=== PATIENT | female | born 1945 | race Caucasian/White ===

== ENCOUNTER 2020-01-04 17:03 | Inpatient (IN) ==
[2020-01-04] MEDS ORDERED: SALINE 3% 15 ML NEB TX ONE (17:57)
[2020-01-04] MEDS ORDERED: SALINE 3% 15 ML NEB TX NEB ONE (18:04)
[2020-01-04 18:10] LABS: BASOPHILS % (AUTO) 0.3 % (0.2-1.0); EOSINOPHILS # (AUTO) 0.2 x10^3/uL (0.0-0.2); HEMATOCRIT 34.3 % (36.0-47.0); HEMOGLOBIN 11.7 g/dL (12.0-16.0); LYMPHOCYTES # (AUTO) 1.5 X10^3/uL (1.3-2.9); MEAN CORPUSCULAR HEMOGLOBIN 32.3 pg (27.0-34.0); MEAN CORPUSCULAR HGB CONC 34.1 g/dL (33.0-35.0); MEAN CORPUSCULAR VOLUME 94.8 fL (80.0-100.0); MEAN PLATELET VOLUME 8.4 fL (7.4-11.0); MONOCYTES # (AUTO) 1.1 x10^3/uL (0.3-0.8); MONOCYTES % (AUTO) 9.8 % (0.0-13.0); NEUTROPHILS # (AUTO) 8.1 x10^3/uL (2.2-4.8); NEUTROPHILS % (AUTO) 73.9 % (42.0-75.0); PLATELET COUNT 313 X10^3/uL (150.0-450.0); RED BLOOD COUNT 3.62 X10^6/uL (3.5-5.4); RED CELL DISTRIBUTION WIDTH 13.3 % (11.6-16.5); WHITE BLOOD COUNT 10.9 X10^3/uL (3.6-10.0)
[2020-01-04 18:25] LABS: ALANINE AMINOTRANSFERASE 37 Units/L (12-78); ALKALINE PHOSPHATASE 75 Units/L (46-116); ASPARTATE AMINO TRANSFERASE 37 Units/L (15-37); BLOOD UREA NITROGEN 10 mg/dL (7-18); CALCIUM 9.2 mg/dL (8.5-10.1); CARBON DIOXIDE 28.1 mmol/L (21-32); CHLORIDE 100 mmol/L (98-107); COR NA(FOR HYPERGLY) 137 mmol/L (136-145); CREATININE 0.98 mg/dL (0.55-1.02); SODIUM 137 mmol/L (136-145); TOTAL PROTEIN 8.7 g/dL (6.4-8.2); eGFR NON BLACK RACES 59 (>60)
[2020-01-04] MEDS ORDERED: CIPRO IV 400 MG PREMIX* 400 MG/200 ML IV.SOLN. IV ONE (18:45)
--- NOTE | 2020-01-04 18:46 | DR.URIAD ---
HPI Time Seen Time Seen by Provider: 01/04/20 18:44 PCP Primary Care Physician: RAFAT HPI Comment HPI Comment: PATIENT IS 74YR OLD WHITE FEMALE IN ER WITH COUGH, FEVER AND SOB FOR NINE DAYS. PATIENT WAS PLACED ON AMOXICILLIN AND TESSALON PERLES. NO IMPRO VEMENT. XRAY DONE INDICATING LLL PNEUMONIA AND PLEURAL EFFUSION. IN ER FOR FURTHER MANAGEMENT. PATIENT IS FAIL OUT PATIENT THERAPY. Complaint Chief Complaint Doctors Comments: COUGH, CONGESTION AND SOB. STATED 10DAYS AGO. Chief Complaint:: PT WENT TO [facility] ON 12/29/2019, DX SINUS, PT GIVEN AMOX, PT WENT TO [facility] TODAY PT C/O ( PNEUMONIA AND INFILTRATES )..BR Source History Provided: Patient and Family Member Mode of Arrival Mode of Arrival: Ambulatory Timing Onset of Chief Complaint: 12/26/19 Context Recent Treated Infections: None History of Respiratory: None Quality Quality of Cough: Productive and Yellow Rhinorrhea: Clear Shortness of Breath: Moderate Associated Signs and Symptoms Other Signs and Symptoms: Accessory Muscle Use, Cough, Decreased Oral Intake, Fever, Myalgias, Shortness of Breath and URI PMH PMH Past Medical History: No Past Surgical History: No Family History History of Family Medical Conditions: No Social History Does patient currently use any type of tobacco product: No Have you used tobacco products in the last 12 months: No Type of Tobacco Use: None Does any household member use tobacco: No Alcohol Use: None Do you use any recreational Drugs:: No Lives With: Family Lives Where: Home Travel Risk Coronavirus risk:travel/contact w/high risk person: No Has patient experienced Coronavirus symptoms: No Coronavirus symptoms experienced: Fever and Lower Respiratory illness Infectious screening In the last 2 months have you had wt loss of >10#?: NO Have you had fever, night sweats or hemotysis?: No Have you traveled outside the country in the last 6 months?: No Isolation: Standard ROS Review of Systems Constitutional: See HPI, Fever, Weakness and Fatigue Eyes: No Symptoms Reported and See HPI; negative Blurred Vision and Diplopia ENTM: No Symptoms Reported and See HPI; negative Ear Pain, Nose Discharge, Nose Congestion and Throat Pain Respiratoy: See HPI, Moist Cough and Short of Breath; negative Wheezing Cardiovascular: No Symptoms Reported and See HPI; negative Chest Pain, Edema and Palpitations Gastrointestinal/Abdominal: No Symptoms Reported and See HPI; negative Abdominal Pain, Constipation, Diarrhea and Vomiting Genitourinary: No Symptoms Reported and See HPI; negative Dysuria and Hematuria Neurological: See HPI and Weakness; negative Headache and Dizziness Musculoskeletal: No Symptoms Reported and See HPI; negative Back Pain and Muscle Pain Integumentary: No Symptoms Reported and See HPI; negative Change in Color, Rash and Juandice Hematologic/Lymphatic: No Symptoms Reported and See HPI; negative Easy Bruising and Swollen Glands Endocrine: No Symptoms Reported, See HPI, Increased Thirst and Increased Urine Psychiatric: No Symptoms Reported and See HPI All Other Systems: Reviewed and Negative PE Vital Signs Vitals: Temperature 99.5 F Pulse Rate 99 Respiratory Rate 20 Blood Pressure 198/89 O2 Sat by Pulse Oximetry 93 General Limitations: No Limitations General Appearance: Alert and In Distress Head Head Exam: Normal Inspection and Atraumatic Eyes Eye exam: Normal Appearance, PERRL and EOMI; negative Scleral Icterus and Conjunctival Injection ENT ENT Exam: Normal Exam, Normal Oropharynx, Normal External Ear Exam and TM's Normal Bilaterally External Ear Exam: Normal External Inspection; negative Mastoid Tenderness TM/Canal Exam: Bilateral: Normal Nose Exam: Normal Nose Exam; negative Sinus Tenderness, Nasal Deviation and Septal Hematoma Mouth Exam: Normal Inspection; negative Lip Swelling and Tongue Swelling Throat Exam: Tonsillar Erythema; negative Tonsillomegaly and Tonsillar Exudate Neck Neck Exam: Normal Inspection and Trachea Midline; negative Tenderness and Lymphadenopathy Chest Chest Inspection: Normal Inspection and Symmetric Chest Wall Rise; negative Tenderness Respiratory Respiratory Exam: Respiratory Distress and Other ( LLL RHONCHI.); negative Accessory Muscle Use and Chest Wall Tenderness Cardiovascular Cardiovascular Exam: Regular Rate, Normal Rhythm and Normal Heart Sounds; negative Systolic Murmur and Diastolic Murmur Abdominal Exam Abdominal Exam: Normal Inspection, Normal Bowel Sounds and Soft; negative Tenderness Extremeties Extremities Exam: Normal Inspection and Normal Capillary Refill; negative Tenderness, Edema and Calf Tenderness Back Back Exam: negative Tenderness, (R) CVA Tenderness, (L) CVA Tenderness, Paraspinal Tenderness and Vertebral Tenderness Neurologic Neurological Exam: Alert, Oriented X3 and CN II-XII Intact; negative Motor Sensory Deficit Psychiatric Psychiatric Exam: Normal Affect and Normal Mood Skin Skin Exam: Warm, Dry, Intact and Normal Color MDM Additional Information Additional Information Obtained From: Family Differential Diagnosis Differential Diagnosis: Pneumonia (PNEUMOTHORAX, CHF, PLEURAL EFFUSION.) and URI COURSE Treatment Treatment: SEE ORDERS. LEVAQUIN 750MG IVPB IN ER. Consultation Consultation Comments: DISCUSEEDE PATIENT WITH DR. HOPE. HE WILL ADMIT PATIENT. Education/Counseling Education/Counseling: Patient and Family Educated On: Diagnosis ROR Labs Reviewed Laboratory Results Reviewed?: Yes Result Diagrams: 01/04/20 17:55 01/04/20 17:55 Laboratory: WBC 10.9 X10^3/uL (3.6-10.0) H 01/04/20 17:55 RBC 3.62 X10^6/uL (3.5-5.4) 01/04/20 17:55 Hgb 11.7 g/dL (12.0-16.0) L 01/04/20 17:55 Hct 34.3 % (36.0-47.0) L 01/04/20 17:55 MCV 94.8 fL (80.0-100.0) 01/04/20 17:55 MCH 32.3 pg (27.0-34.0) 01/04/20 17:55 MCHC 34.1 g/dL (33.0-35.0) 01/04/20 17:55 RDW 13.3 % (11.6-16.5) 01/04/20 17:55 Plt Count 313 X10^3/uL (150.0-450.0) 01/04/20 17:55 MPV 8.4 fL (7.4-11.0) 01/04/20 17:55 Neut % (Auto) 73.9 % (42.0-75.0) 01/04/20 17:55 Lymph % (Auto) 14.0 % (21.0-51.0) L 01/04/20 17:55 [place] % (Auto) 9.8 % (0.0-13.0) 01/04/20 17:55 Eos % (Auto) 2.0 % (0.9-2.9) 01/04/20 17:55 Baso % (Auto) 0.3 % (0.2-1.0) 01/04/20 17:55 Neut # (Auto) 8.1 x10^3/uL (2.2-4.8) H 01/04/20 17:55 Lymph # (Auto) 1.5 X10^3/uL (1.3-2.9) 01/04/20 17:55 [place] # (Auto) 1.1 x10^3/uL (0.3-0.8) H 01/04/20 17:55 Eos # (Auto) 0.2 x10^3/uL (0.0-0.2) 01/04/20 17:55 Baso # (Auto) 0.0 X10^3/uL (0.0-0.1) 01/04/20 17:55 Absolute Nucleated RBC 0.0 /100WBC 01/04/20 17:55 Sample Site Lr 01/04/20 19:04 ABG pH 7.510 (7.35-7.45) H 01/04/20 19:04 ABG pCO2 33.0 mmHg (35.0-45.0) L 01/04/20 19:04 ABG pO2 69.0 mmHg (80.0-100.0) L 01/04/20 19:04 ABG HCO3 26.3 mmol/L (22-26) H 01/04/20 19:04 ABG O2 Saturation 95.0 % (90-100) 01/04/20 19:04 ABG Base Excess 3.6 mmol/L (-2.0-2.0) H 01/04/20 19:04 Delroy Test Pos 01/04/20 19:04 A-a Gradient 39.0 mmHg 01/04/20 19:04 FiO2 21.0 01/04/20 19:04 Blood Gas Comments Kimberly well ae 01/04/20 19:04 Sodium 137 mmol/L (136-145) 01/04/20 17:55 Corrected Sodium 137 mmol/L (136-145) 01/04/20 17:55 Potassium 3.9 mmol/L (3.5-5.1) 01/04/20 17:55 Chloride 100 mmol/L (98-107) 01/04/20 17:55 Carbon Dioxide 28.1 mmol/L (21-32) 01/04/20 17:55 BUN 10 mg/dL (7-18) 01/04/20 17:55 Creatinine 0.98 mg/dL (0.55-1.02) 01/04/20 17:55 Est GFR (MDRD) Af Amer > 60 (>60) 01/04/20 17:55 Est GFR (MDRD) Non-Af 59 (>60) 01/04/20 17:55 Glucose 116 mg/dL (65-99) H 01/04/20 17:55 Lactic Acid 0.8 mmol/L (0.4-2.0) 01/04/20 17:55 Calcium 9.2 mg/dL (8.5-10.1) 01/04/20 17:55 Corrected Calcium 10.0 mg/dL (8.5-10.1) 01/04/20 17:55 Total Bilirubin 0.60 mg/dL (0.2-1.0) 01/04/20 17:55 AST 37 Units/L (15-37) 01/04/20 17:55 ALT 37 Units/L (12-78) 01/04/20 17:55 Alkaline Phosphatase 75 Units/L (46-116) 01/04/20 17:55 Total Protein 8.7 g/dL (6.4-8.2) H 01/04/20 17:55 Albumin 3.0 g/dL (3.4-5.0) L 01/04/20 17:55 Globulin 5.7 g/dL (2.5-4.5) H 01/04/20 17:55 Albumin/Globulin Ratio 0.5 Ratio (1.1-2.1) L 01/04/20 17:55 XRAY XRAY Interpreted by: Radiologist (REPORT NOTED AND DISCUSSED WITH PATIENT.) and Self Opioid Opioid Risk Tool Age (Shiraz box if 16-45): No History of Preadolescent Sexual Abuse: No Total: 0 Total Score Risk Category: Low Risk Copyright: Eric STRICKLAND predicting aberrant behaviors Diagnosis Discharge Problem: Pleural effusion, left LLL pneumonia Qualifiers: Pneumonia type: due to unspecified organism Qualified Code(s): J18.9 - Pneumonia, unspecified organism
[2020-01-04 18:56] LABS: LACTIC ACID 0.8 mmol/L (0.4-2.0)
[2020-01-04 19:09] LABS: ABG BASE EXCESS 3.6 mmol/L (-2.0-2.0); ABG HCO3 26.3 mmol/L (22-26)
[2020-01-04 19:10] LABS: ABG ALLEN TEST POS
[2020-01-04] MEDS ORDERED: LEVAQUIN PREMIX IV 750 MG 750 MG/150 ML BAG IV ONE ×2 (19:19→19:41)
[2020-01-04] MEDS ORDERED: TUSSIONEX PENNKINETIC SUSP PO PRN (21:15)
[2020-01-04 22:04] VITALS: BMI 36.8
[2020-01-04] MEDS ORDERED: NS 1/2 1000 ML IV 1,000 ML IV ONE (22:26)
[2020-01-04] MEDS: FORTAZ or TAZICEF VIAL INJ 1 G in NS 100 ML IV + SPIKE MINIBAG* 100 ML IV SCH ×2 (22:27→22:41)
[2020-01-04] MEDS: ROBITUSSIN DM PO SCH (22:27)
[2020-01-04] MEDS: NS 1/2 1000 ML IV 1,000 ML IV SCH (22:27)
[2020-01-05] MEDS: DUONEB 0.5 MG/3 MG (3 mL) NEB SCH ×2 (00:05→05:06)
[2020-01-05] MEDS ORDERED: TYLENOL 325 MG TAB PO ONE (01:52)
[2020-01-05] MEDS: TYLENOL 325 MG TAB PO PRN ×2 (01:56→21:50)
[2020-01-05] MEDS: FORTAZ or TAZICEF VIAL INJ 1 G in NS 100 ML IV + SPIKE MINIBAG* 100 ML IV SCH ×3 (05:21→22:15)
--- NOTE | 2020-01-05 05:57 | RAD ---
HISTORYPneumoniaSTUDYChest PA and lateral viewsCOMPARISONNoneFINDINGSThere is marked cardiac enlargement. The right lung is clear. There is a retrocardiac opacity obscuring the diaphragm. The left upper lung is clear.IMPRESSIONMarked heart enlargement. Left basal opacity may represent airspace disease and/or pleural effusion. Follow-up with decubitus views may be helpful.Electronically signed by: LIONEL GOMEZ (Jan 05, 2020 05:56:33)
[2020-01-05 06:05] LABS: BASOPHILS % (AUTO) 0.3 % (0.2-1.0); EOSINOPHILS # (AUTO) 0.2 x10^3/uL (0.0-0.2); EOSINOPHILS % (AUTO) 2.3 % (0.9-2.9); HEMATOCRIT 34.1 % (36.0-47.0); HEMOGLOBIN 11.5 g/dL (12.0-16.0); LYMPHOCYTES # (AUTO) 1.7 X10^3/uL (1.3-2.9); LYMPHOCYTES % (AUTO) 16.5 % (21.0-51.0); MEAN CORPUSCULAR HEMOGLOBIN 32.3 pg (27.0-34.0); MEAN CORPUSCULAR HGB CONC 33.8 g/dL (33.0-35.0); MEAN CORPUSCULAR VOLUME 95.6 fL (80.0-100.0); MEAN PLATELET VOLUME 8.9 fL (7.4-11.0); MONOCYTES # (AUTO) 1.2 x10^3/uL (0.3-0.8); MONOCYTES % (AUTO) 11.6 % (0.0-13.0); NEUTROPHILS # (AUTO) 7.3 x10^3/uL (2.2-4.8); NEUTROPHILS % (AUTO) 69.3 % (42.0-75.0); PLATELET COUNT 291 X10^3/uL (150.0-450.0); RED BLOOD COUNT 3.57 X10^6/uL (3.5-5.4); RED CELL DISTRIBUTION WIDTH 13.3 % (11.6-16.5); WHITE BLOOD COUNT 10.6 X10^3/uL (3.6-10.0)
[2020-01-05 06:15] LABS: ALANINE AMINOTRANSFERASE 31 Units/L (12-78); ALBUMIN 2.7 g/dL (3.4-5.0); ALKALINE PHOSPHATASE 68 Units/L (46-116); ASPARTATE AMINO TRANSFERASE 33 Units/L (15-37); BLOOD UREA NITROGEN 8 mg/dL (7-18); CALCIUM 8.7 mg/dL (8.5-10.1); CARBON DIOXIDE 28.9 mmol/L (21-32); CHLORIDE 102 mmol/L (98-107); COR CA(FOR HYPOALB) 9.7 mg/dL (8.5-10.1); COR NA(FOR HYPERGLY) 139 mmol/L (136-145); CREATININE 1.06 mg/dL (0.55-1.02); SODIUM 139 mmol/L (136-145); TOTAL PROTEIN 8.3 g/dL (6.4-8.2); eGFR NON BLACK RACES 54 (>60)
[2020-01-05] MEDS ORDERED: MICRO K EXTEN CAP 10 MEQ PO PRN (06:38)
[2020-01-05] MEDS ORDERED: POTASSIUM CHLORIDE LIQ 20 MEQ UDC PO PRN (06:38)
[2020-01-05] MEDS ORDERED: K-RIDER 10 MEQ/NS 100 ML 10 MEQ/100 ML BAG IV PRN (06:38)
[2020-01-05] MEDS ORDERED: POTASSIUM CHL 40 MEQ/NS 0.45% 500 ML IV PRN (06:38)
[2020-01-05] MEDS ORDERED: KLOR-CON PO PRN (06:38)
[2020-01-05] MEDS ORDERED: POTASSIUM CHL 60 MEQ/NS 0.45% 500 ML IV PRN (06:38)
[2020-01-05] MEDS: K-DUR TAB 20 MEQ PO PRN (07:30)
[2020-01-05] MEDS: ROBITUSSIN DM PO SCH ×4 (09:15→20:40)
[2020-01-05] MEDS: VSL#3 PO SCH (09:15)
[2020-01-05] MEDS: LOVENOX INJ 40 MG SYR SC SCH (09:15)
[2020-01-05] MEDS: MAGNESIUM SULFATE 1 GRAM/100 mL PREMIX 1 GM/100 ML BAG IV PRN ×2 (09:16→10:50)
[2020-01-05 09:54] LABS: ABG BASE EXCESS 4.7 mmol/L (-2.0-2.0); ABG HCO3 28.2 mmol/L (22-26)
[2020-01-05 09:55] LABS: ABG ALLEN TEST POS
[2020-01-05 09:56] LABS: RSV AG DETECTION NEGATIVE (NEGATIVE)
[2020-01-05] MEDS ORDERED: DUONEB 0.5 MG/3 MG (3 mL) NEB PRN (11:29)
--- NOTE | 2020-01-05 12:26 | CT ---
HISTORYShortness of breath. Coughing for 9 days.STUDYCHEST WITH CONCOMPARISONChest radiograph from january 05, 2020.TECHNIQUEMultiple axial images of the chest were obtained from the thoracic inlet to the upper abdomen without the administration of IV contrast. Dose reduction techniques including Automated Exposure Control (AEC) and adjustment of mA and kV were utilized.FINDINGSThere are multiple lymph nodes in the mediastinum. There is a least one 1.5 cm lymph nodes in the left AP window. The aorta is normal appearance, without evidence of aneurysm or dissection. The main pulmonary arteries have a normal nonenhanced appearance. There is a large pericardial effusion.There is a large left-sided pleural effusion. There is a small right-sided pleural effusion. Patchy airspace and interstitial opacities along the periphery of the right lower lobe. There is some compressive atelectasis versus small focal consolidation in the left lung base. There is no evidence of pneumothorax.There is no acute osseous injury.The visualized solid visceral organs in the upper abdomen are unremarkable.IMPRESSION1. Large pericardial effusion.2. Large left-sided pleural effusion. Small right-sided pleural effusion.3. Compressive atelectasis versus consolidation in the left lower lobe.4. Patchy infiltrate along the periphery of the right lower lobe.5. Mediastinal lymphadenopathy. Although there is a post 1.5 cm lymph node in the AP window. Most of the lymph nodes in the mediastinum appear reactive in nature. Clinical correlation for infectious or inflammatory process is recommended.Electronically signed by: CHANTAL NATH (Jan 05, 2020 12:24:11)
[2020-01-05 13:06] LABS: BILIRUBIN,URINE NEGATIVE (NEGATIVE); BLOOD/HEMOGLOBIN,URINE 2+ (NEGATIVE); GLUCOSE, URINE NEGATIVE (NEGATIVE); KETONES,URINE NEGATIVE (NEGATIVE); LEUKOCYTE ESTERASE ,URINE NEGATIVE (NEGATIVE); NITRITES,URINE NEGATIVE (NEGATIVE); PH,URINE 6.5 (5.0 - 8.0); PROTEIN,URINE 1+ (NEGATIVE); UROBILINOGEN,URINE NORMAL (NORMAL)
[2020-01-05 13:37] LABS: APPEARANCE,URINE CLEAR (CLEAR); COLOR,URINE YELLOW (YELLOW)
[2020-01-05 13:38] LABS: AMORPHOUS SEDIMENT,UR 1+ /HPF (NEGATIVE); BACTERIA,URINE NEGATIVE /HPF (NEGATIVE); RBC,URINE 0-2 /HPF (0-3); SQUAMOUS EPITHELIAL CELL,UR FEW /HPF (NEGATIVE)
[2020-01-05] MEDS ORDERED: NS 1/2 1000 ML IV 1,000 ML IV ONE (13:53)
[2020-01-05] MEDS: NS 1/2 1000 ML IV 1,000 ML IV SCH (13:57)
[2020-01-05] MEDS: ALBUMIN HUMAN 25%- 100 ML 100 ML IV SCH (14:13)
[2020-01-05 15:32] LABS: RHEUMATOID FACTOR POSITIVE (NEGATIVE)
[2020-01-05 16:19] LABS: CREATINE KINASE 102 Units/L (26-192); CREATINE KINASE MB < 1.0 ng/mL (0-4.0); TROPONIN I < 0.02 ng/mL (0-1.5)
[2020-01-05] MEDS: LASIX IVP SCH (17:10)
[2020-01-05 19:06] LABS: ABG ALLEN TEST POS; ABG BASE EXCESS 3.6 mmol/L (-2.0-2.0); ABG HCO3 26.3 mmol/L (22-26)
[2020-01-05 19:54] LABS: CREATINE KINASE 126 Units/L (26-192); CREATINE KINASE MB 1.3 ng/mL (0-4.0); TROPONIN I < 0.02 ng/mL (0-1.5)
[2020-01-05] MEDS ORDERED: LEVAQUIN PREMIX IV 750 MG 750 MG/150 ML BAG IV SCH (20:21)
[2020-01-05] MEDS ORDERED: RESTORIL CAP 15 MG PO PRN (21:10)
[2020-01-06] MEDS: NS 1/2 1000 ML IV 1,000 ML IV SCH ×3 (00:58→16:12)
[2020-01-06 02:31] LABS: CKMB % 0.8 % (<4); CREATINE KINASE 131 Units/L (26-192); TROPONIN I < 0.02 ng/mL (0-1.5)
[2020-01-06] MEDS: LASIX IVP SCH (05:30)
[2020-01-06] MEDS: FORTAZ or TAZICEF VIAL INJ 1 G in NS 100 ML IV + SPIKE MINIBAG* 100 ML IV SCH ×3 (05:35→21:35)
[2020-01-06 05:44] LABS: ABG ALLEN TEST POS; ABG BASE EXCESS 5.5 mmol/L (-2.0-2.0); ABG HCO3 28.9 mmol/L (22-26)
[2020-01-06] MEDS ORDERED: NS 1/2 1000 ML IV 1,000 ML IV ONE (05:58)
[2020-01-06 05:59] LABS: BASOPHILS % (AUTO) 0.3 % (0.2-1.0); EOSINOPHILS # (AUTO) 0.2 x10^3/uL (0.0-0.2); EOSINOPHILS % (AUTO) 1.6 % (0.9-2.9); HEMATOCRIT 30.8 % (36.0-47.0); HEMOGLOBIN 10.3 g/dL (12.0-16.0); LYMPHOCYTES # (AUTO) 1.2 X10^3/uL (1.3-2.9); LYMPHOCYTES % (AUTO) 10.9 % (21.0-51.0); MEAN CORPUSCULAR HEMOGLOBIN 31.6 pg (27.0-34.0); MEAN CORPUSCULAR HGB CONC 33.3 g/dL (33.0-35.0); MEAN CORPUSCULAR VOLUME 94.8 fL (80.0-100.0); MEAN PLATELET VOLUME 8.9 fL (7.4-11.0); MONOCYTES # (AUTO) 1.3 x10^3/uL (0.3-0.8); MONOCYTES % (AUTO) 11.7 % (0.0-13.0); NEUTROPHILS # (AUTO) 8.6 x10^3/uL (2.2-4.8); NEUTROPHILS % (AUTO) 75.5 % (42.0-75.0); PLATELET COUNT 258 X10^3/uL (150.0-450.0); RED BLOOD COUNT 3.25 X10^6/uL (3.5-5.4); WHITE BLOOD COUNT 11.4 X10^3/uL (3.6-10.0)
[2020-01-06 06:14] LABS: ALANINE AMINOTRANSFERASE 25 Units/L (12-78); ALBUMIN 2.7 g/dL (3.4-5.0); ALKALINE PHOSPHATASE 61 Units/L (46-116); ASPARTATE AMINO TRANSFERASE 33 Units/L (15-37); BLOOD UREA NITROGEN 9 mg/dL (7-18); CALCIUM 8.5 mg/dL (8.5-10.1); CARBON DIOXIDE 28.1 mmol/L (21-32); CHLORIDE 100 mmol/L (98-107); COR CA(FOR HYPOALB) 9.5 mg/dL (8.5-10.1); COR NA(FOR HYPERGLY) 134 mmol/L (136-145); CREATININE 0.86 mg/dL (0.55-1.02); SODIUM 134 mmol/L (136-145); TOTAL PROTEIN 7.8 g/dL (6.4-8.2); eGFR NON BLACK RACES > 60 (>60)
[2020-01-06 06:41] LABS: ERYTHROCYTE SEDIMENTATION RATE 102 MM/HOUR (0-20)
--- NOTE | 2020-01-06 07:10 | RAD ---
HISTORYDyspnea and chest pain.STUDYSingle portable view of the chest.COMPARISONChest radiograph dated January 05, 2020.FINDINGSThe trachea is midline. The cardiac silhouette is enlarged but stable. There is a moderate-sized left basilar pleural effusion with associated left lower lobe consolidation/compressive atelectasis also seen. Ground-glass disease in the right lung base is stable as well. No other cardiopulmonary changes from prior identified on this examination. The bony thorax is unremarkable.IMPRESSIONThe trachea is midline. The cardiac silhouette is enlarged but stable. There is a moderate-sized left basilar pleural effusion with associated left lower lobe consolidation/compressive atelectasis also seen. Ground-glass disease in the right lung base is stable as well. No other cardiopulmonary changes from prior identified on this examination. The bony thorax is unremarkable.Electronically signed by: SALVADOR PICHARDO III (Jan 06, 2020 07:09:01)
--- NOTE | 2020-01-06 07:12 | RAD ---
HISTORYFALL PT FELL YESTERDAY AND C/O PAIN IN HER LOWER BACKSTUDYLUMBAR SPINE, AP/LATCOMPARISONNone available.FINDINGSNormal alignment of the lumbar spine is maintained. No evidence for acute fracture can be identified. There is mild lumbar spondylosis and moderate lower lumbar facet joint DJD with foraminal and spinal canal narrowing seen from L3 through S1 which appears chronic in nature. No acute bony injury is otherwise seen. No L-spine subluxation is identified, either.IMPRESSIONDegenerative changes of the spine without acute fracture or subluxation seen.Electronically signed by: SALVADOR PICHARDO III (Jan 06, 2020 07:11:05)
--- NOTE | 2020-01-06 07:14 | RAD ---
HISTORYBack pain and fall. Concern for sacral fracture.STUDYThree-view radiographic series of the sacrum.COMPARISONNone available.FINDINGSThere is no convincing evidence for acute sacral fracture. No SI joint diastasis is seen, either. The pelvic ring is grossly intact on this examination. There is mild bilateral hip joint osteoarthritis. No other bony injury or other acute fracture is appreciated.IMPRESSIONNo convincing evidence for a traumatic sacral fracture, as above.Electronically signed by: SALVADOR PICHARDO III (Jan 06, 2020 07:12:46)
[2020-01-06] MEDS: LOVENOX INJ 40 MG SYR SC SCH (09:01)
[2020-01-06] MEDS: VSL#3 PO SCH (09:03)
[2020-01-06] MEDS: ROBITUSSIN DM PO SCH ×4 (09:03→21:35)
[2020-01-06 09:58] LABS: LACTATE DEHYDROGENASE 361 Units/L (81-234)
[2020-01-06] MEDS ORDERED: CARDIZEM INJ 125 MG VIAL 125 MG in NS 100 ML IV 100 ML IV PRN (12:04)
[2020-01-06] MEDS ORDERED: NS 500 ML IV 500 ML IV PRN (13:17)
[2020-01-06] MEDS ORDERED: NS 500 ML IV 500 ML IV ONE (13:21)
[2020-01-06] MEDS: ALBUMIN HUMAN 25%- 100 ML 100 ML IV SCH (13:24)
[2020-01-06] MEDS ORDERED: PLAQUENIL PO ONE (13:40)
[2020-01-06] MEDS: ZITHROMAX INJ 500 MG VIAL 500 MG in NS 250 ML IV 250 ML IV SCH (13:50)
[2020-01-06] MEDS: PLAQUENIL PO SCH ×2 (14:57→21:36)
[2020-01-07 03:08] LABS: BILIRUBIN,URINE NEGATIVE (NEGATIVE); BLOOD/HEMOGLOBIN,URINE 2+ (NEGATIVE); GLUCOSE, URINE NEGATIVE (NEGATIVE); KETONES,URINE 1+ (NEGATIVE); LEUKOCYTE ESTERASE ,URINE NEGATIVE (NEGATIVE); NITRITES,URINE NEGATIVE (NEGATIVE); PH,URINE 6.5 (5.0 - 8.0); PROTEIN,URINE 1+ (NEGATIVE); UROBILINOGEN,URINE NORMAL (NORMAL)
[2020-01-07 03:09] LABS: APPEARANCE,URINE CLEAR (CLEAR); COLOR,URINE YELLOW (YELLOW)
[2020-01-07 03:14] LABS: BACTERIA,URINE NEGATIVE /HPF (NEGATIVE); RBC,URINE 0-2 /HPF (0-3); SQUAMOUS EPITHELIAL CELL,UR NEGATIVE /HPF (NEGATIVE)
[2020-01-07] MEDS ORDERED: NS 1/2 1000 ML IV 1,000 ML IV ONE ×2 (04:06→21:04)
[2020-01-07] MEDS: NS 1/2 1000 ML IV 1,000 ML IV SCH ×3 (04:26→21:18)
[2020-01-07 05:35] LABS: BASOPHILS % (AUTO) 0.1 % (0.2-1.0); EOSINOPHILS # (AUTO) 0.2 x10^3/uL (0.0-0.2); EOSINOPHILS % (AUTO) 1.4 % (0.9-2.9); HEMATOCRIT 30.3 % (36.0-47.0); HEMOGLOBIN 10.3 g/dL (12.0-16.0); LYMPHOCYTES # (AUTO) 1.3 X10^3/uL (1.3-2.9); LYMPHOCYTES % (AUTO) 11.8 % (21.0-51.0); MEAN CORPUSCULAR HEMOGLOBIN 32.2 pg (27.0-34.0); MEAN CORPUSCULAR HGB CONC 33.8 g/dL (33.0-35.0); MEAN CORPUSCULAR VOLUME 95.1 fL (80.0-100.0); MEAN PLATELET VOLUME 9.1 fL (7.4-11.0); MONOCYTES # (AUTO) 1.1 x10^3/uL (0.3-0.8); MONOCYTES % (AUTO) 10.7 % (0.0-13.0); NEUTROPHILS # (AUTO) 8.1 x10^3/uL (2.2-4.8); PLATELET COUNT 269 X10^3/uL (150.0-450.0); RED BLOOD COUNT 3.19 X10^6/uL (3.5-5.4); RED CELL DISTRIBUTION WIDTH 13.2 % (11.6-16.5); WHITE BLOOD COUNT 10.7 X10^3/uL (3.6-10.0)
[2020-01-07] MEDS: FORTAZ or TAZICEF VIAL INJ 1 G in NS 100 ML IV + SPIKE MINIBAG* 100 ML IV SCH ×3 (05:39→21:18)
[2020-01-07] MEDS: PLAQUENIL PO SCH ×3 (05:40→21:18)
[2020-01-07 05:43] LABS: ALANINE AMINOTRANSFERASE 28 Units/L (12-78); ALBUMIN 2.6 g/dL (3.4-5.0); ALKALINE PHOSPHATASE 55 Units/L (46-116); ASPARTATE AMINO TRANSFERASE 30 Units/L (15-37); BLOOD UREA NITROGEN 8 mg/dL (7-18); CALCIUM 8.4 mg/dL (8.5-10.1); CHLORIDE 101 mmol/L (98-107); COR CA(FOR HYPOALB) 9.5 mg/dL (8.5-10.1); COR NA(FOR HYPERGLY) 136 mmol/L (136-145); CREATININE 0.78 mg/dL (0.55-1.02); SODIUM 136 mmol/L (136-145); TOTAL PROTEIN 7.4 g/dL (6.4-8.2); eGFR NON BLACK RACES > 60 (>60)
[2020-01-07 07:40] LABS: ERYTHROCYTE SEDIMENTATION RATE 111 MM/HOUR (0-20)
--- NOTE | 2020-01-07 07:57 | RAD ---
HISTORYShortness of breath.STUDYCHEST, 1 VIEWCOMPARISONChest radiograph dated 01/06/2020. Chest CT dated 01/05/2020.FINDINGSThe trachea is midline. The cardiac silhouette is enlarged with large pericardial effusion noted on the recent comparison chest CT. There is persistent retrocardiac opacity in the left lung base which corresponds to a pleural effusion and associated compressive atelectasis on the comparison chest CT. Left upper lung zone and right lung are clear.IMPRESSIONEnlarged cardiac silhouette and retrocardiac opacity on the left are unchanged and likely correspond to a large pericardial effusion and left basilar pleural effusion with associated compressive atelectasis noted on the comparison chest CT performed 2 days earlier.Electronically signed by: ISMAEL MORRISON (Jan 07, 2020 07:56:46)
[2020-01-07] MEDS: ROBITUSSIN DM PO SCH ×4 (10:00→21:18)
[2020-01-07] MEDS: ZITHROMAX INJ 500 MG VIAL 500 MG in NS 250 ML IV 250 ML IV SCH (10:00)
[2020-01-07] MEDS: ALBUMIN HUMAN 25%- 100 ML 100 ML IV SCH (10:00)
[2020-01-07] MEDS: VSL#3 PO SCH (10:00)
[2020-01-07] MEDS: LOVENOX INJ 40 MG SYR SC SCH (10:00)
--- NOTE | 2020-01-07 10:04 | DR.H&P ---
H&P - History & Physical for Day of: H&P Date: 01/04/20 - Chief Complaint Chief Complaint: COUGH, FEVER, SOB - History of Present Illness History of Present Illness: IS A 74 YEAR OLD WHITE FEMALE WHO PRESENTED TO THE ER WITH COMPLAINTS OF COUGH, FEVER, AND SHORTNESS OF BREATH X 9 DAYS. SHE WAS RECENTELY TREATED AT [facility] ON 12/29/19 IN [place], [place] FOR PNEUMONIA AND PLEURAL EFFUSION, WHICH WAS CONFIRMED BY XRAY. SHE WAS PLACED ON AMOXICILLIN AND TESSALON PERLES. SHE DENIES IMPROVEMENT IN SYMPTOMS SINCE. SHE REPORTS A PRODUCTIVE COUGH WITH THICK YELLOW SPUTUM. SHE WAS ALSO SWABBED FOR INFLUENZA AT [facility]. IT WAS NEGATIVE. ON ARRIVAL TO THE HOSPITAL, VITALS WERE 99.5-99-20-93%-198/89. LABS WERE OBTAINED. ABNORMAL LAB VALUES INCLUDED THE FOLLOWING: WBC 10.9, HGB 11.7, HCT 34.3, GLUCOSE 116, TOTAL PROTEIN 8.7, ALBUMIN 3.0, GLOBULIN 5.7. AN ABG REVEALED: PH 7.510, PC02 33.0, P02 69.0, HC03 26.3, BASE EXCESS 3.6. BLOOD CULTURES WERE SET UP. A CHEST XRAY WAS OBTAINED AND REVEALED: Marked heart enlargement. Left basal opacity may represent airspace disease and/or pleural effusion. Follow-up with decubitus views may be helpful. SHE WAS GIVEN LEVAQUIN 750MG PO X 1 DOSE AND A RESPIRATORY TX. SHE WAS ADMITTED FOR LLL PNEUMONIA, LEFT PLEURAL EFFUSION, AND RESPIRATORY DISTRESS. SHE WAS STARTED ON NS @ 75 ML/HR, FORTAZ 1G IV Q8H, LEVAQUIN IV DAILY, RESPIRATORY TX, TUSSIONEX, AND SUPPLEMENTAL OXYGEN. OTHERWISE, WE PLAN TO FOLLOW UP WITH AM LABS AND CHEST XRAY AND CONTINUE TO MONITOR. 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 - Family History Family Medical History: Diabetes Mellitus, [place], Coronary Artery Disease, Hypertension - Social History Does patient currently use any type of tobacco product: No Have you used tobacco products in the last 12 months: No Type of Tobacco Use: None Does any household member use tobacco: No Alcohol Use: None Drug Use: None - Medications Home Medications: No Known Drug Allergies Allergy (Verified 01/04/20 17:19) CONTINUE taking the following medications amoxicillin-pot clavulanate 1 tab PO BID 01/04/20 [History] benzonatate 200 mg PO DAILY 01/04/20 [History] - Review of Systems Constitutional: Fever, Chills Eyes: No Symptoms Reported ENT: No Symptoms Reported Respiratory: See HPI, Cough, Shortness of Breath Cardiovascular: No Symptoms Reported Gastrointestinal: No Symptoms Reported Genitourinary: No Symptoms Reported Musculoskeletal: No Symptoms Reported Skin: No Symptoms Reported Neurological: Weakness - Physical Exam Vital Signs: Temperature 98.1 F Pulse Rate [Apical] 81 Pulse Rate 85 Respiratory Rate 51 Blood Pressure [Right Arm] 159/72 Blood Pressure 161/71 O2 Sat by Pulse Oximetry 95 Oriented: Normal Eyes: Normal Ear: Normal Nose: Normal Throat: Normal Respiratory: Diminished Throughout Cardiovascular: Normal. negative: S3, S4, Murmur : Normal Auscultation: Bowel Sounds: Normal Palpation: Normal Tenderness: Normal Skin: Normal Musculoskeletal: Normal Psychiatric: Normal Mood Description: Calm Affect: Normal Speech Pattern: Clear - Assessment/Plan (1) LLL pneumonia Qualifiers: Pneumonia type: due to unspecified organism Qualified Code(s): J18.9 - Pneumonia, unspecified organism Status: Acute Plan: NS @ 75 ML/HR, FORTAZ 1G IV Q8H, LEVAQUIN IV DAILY, RESPIRATORY TX, TUSSIONEX, AND SUPPLEMENTAL OXYGEN. (2) Pleural effusion, left Status: Acute - Allergies Allergies/Adverse Reactions: Allergies Allergy/AdvReac Type Severity Reaction Status Date / Time No Known Drug Allergies Allergy Verified 01/04/20 17:19
[2020-01-07] MEDS ORDERED: LANOXIN INJ IVP ONE (15:41)
[2020-01-07] MEDS ORDERED: TOPROL XL PO ONE (15:43)
[2020-01-07] MEDS ORDERED: LANOXIN INJ ONE (15:43)
[2020-01-07] MEDS: TOPROL XL PO SCH (16:12)
[2020-01-07] MEDS: K-DUR TAB 20 MEQ PO PRN (21:20)
--- NOTE | 2020-01-07 23:06 | PCM.PROG ---
Progress Note - Progress Note for Day of Date of Exam: 01/06/20 - Subjective Subjective: IS BEING TREATED FOR LLL PNEUMONIA AND A LEFT SIDED PLEURAL EFFUSION. TODAY, SHE IS ALERT AND ORIENTED, SITTING UP IN BED ON MORNING ROUNDS. SHE IS NOTED WITH SHORTNESS OF BREATH AND COUGH TODAY. SHE REPORTS THAT SHORTNESS OF BREATH HAS INCREASED SINCE YESTERDAY. STAFF REPORTS THAT SHE HAS BEEN TACHYCARDIC THROUGHOUT THE MORNING. ON EXAMINATION, HEART IS REGULAR IN RATE AND RHYTHM. BILATERAL LUNGS ARE NOTED WITH SCATTERED WHEEZING THROUGHOUT. ABDOMEN IS ROUND, SOFT, AND NON-TENDER WITH NORMAL BOWEL SOUNDS NOTED IN ALL QUADRANTS. HER VITALS THIS MORNING ARE: 98.4-90-20-96%-144/69. LABS WERE OBTAINED. ABNORMAL LAB VALUES INCLUDE THE FOLLOWING: WBC 11.4, RBC 3.25, HGB 10.3, HCT 30.8, SODIUM 134, GLUCOSE 116, CRP 131.60, ALBUMIN 2.7, FERRITIN 782, LDH 361. RSV NEGATIVE. BLOOD CULTURES ARE PENDING. A CHEST XRAY WAS OBTAINED TODAY AND REVEALED: The trachea is midline. The cardiac silhouette is enlarged but stable. There is a moderate-sized left basilar pleural effusion with associated left lower lobe consolidation/compressive atelectasis also seen. Ground-glass disease in the right lung base is stable as well. No other cardiopulmonary changes from prior identified on this examination. The bony thorax is unremarkable. TODAY, WE WILL SWAB FOR COVID-19 AND OBTAIN A CHEST CT WITH CONTRAST. OTHERWISE, WE WILL CONTINUE WITH IV ANTIBIOTICS, RESPIRATORY TX, THE POTASSIUM AND MAGNESIUM PROTOCOLS, IV FLUIDS, AND CURRENT PLAN OF CARE. OTHERWISE, WE WILL FOLLOW UP WITH AM LABS AND CHEST XRAY AND CONTINUE TO MONITOR. - Past Medical Family Social History Past Med/Fam/Surg Hx: No changes since H&P Allergies: Allergies No Known Drug Allergies Allergy (Verified 01/04/20 17:19) - Review of Systems ROS: No change since H&P - Vital Signs and I&O's Vital Signs: Temperature 99.1 F Pulse Rate [Apical] 81 Pulse Rate 72 Respiratory Rate 32 Blood Pressure [Right Arm] 159/72 Blood Pressure 178/77 O2 Sat by Pulse Oximetry 97 Intake and Output: Intake & Output 01/05/20 01/06/20 01/07/20 01/08/20 11:59 11:59 11:59 11:59 Intake Total 1265 / 1265 2630 / 2630 2605 / 2605 1540 / 1540 Output Total 2650 / 2650 1150 / 1150 1350 / 1350 Balance 1265 / 1265 -20 / -20 1455 / 1455 190 / 190 - Physical Exam Oriented: Normal Eyes: Normal Ear: Normal Nose: Normal Throat: Normal Respiratory: Generalized, Wheezes Cardiovascular: Normal. negative: S3, S4, Murmur : Normal Auscultation: Bowel Sounds: Normal Palpation: Normal Tenderness: Normal Skin: Normal Musculoskeletal: Normal Psychiatric: Normal Mood Description: Calm Affect: Normal Speech Pattern: Clear - Laboratory and Diagnostics Result Diagrams: 01/07/20 05:06 01/07/20 05:06 Labs: 01/04/20 18:01 Blood Blood Culture - Preliminary 01/04/20 17:55 Blood Blood Culture - Preliminary Laboratory WBC 10.7 X10^3/uL (3.6-10.0) H 01/07/20 05:06 RBC 3.19 X10^6/uL (3.5-5.4) L 01/07/20 05:06 Hgb 10.3 g/dL (12.0-16.0) L 01/07/20 05:06 Hct 30.3 % (36.0-47.0) L 01/07/20 05:06 MCV 95.1 fL (80.0-100.0) 01/07/20 05:06 MCH 32.2 pg (27.0-34.0) 01/07/20 05:06 MCHC 33.8 g/dL (33.0-35.0) 01/07/20 05:06 RDW 13.2 % (11.6-16.5) 01/07/20 05:06 Plt Count 269 X10^3/uL (150.0-450.0) 01/07/20 05:06 MPV 9.1 fL (7.4-11.0) 01/07/20 05:06 Neut % (Auto) 76.0 % (42.0-75.0) H 01/07/20 05:06 Lymph % (Auto) 11.8 % (21.0-51.0) L 01/07/20 05:06 [place] % (Auto) 10.7 % (0.0-13.0) 01/07/20 05:06 Eos % (Auto) 1.4 % (0.9-2.9) 01/07/20 05:06 Baso % (Auto) 0.1 % (0.2-1.0) L 01/07/20 05:06 Neut # (Auto) 8.1 x10^3/uL (2.2-4.8) H 01/07/20 05:06 Lymph # (Auto) 1.3 X10^3/uL (1.3-2.9) 01/07/20 05:06 [place] # (Auto) 1.1 x10^3/uL (0.3-0.8) H 01/07/20 05:06 Eos # (Auto) 0.2 x10^3/uL (0.0-0.2) 01/07/20 05:06 Baso # (Auto) 0.0 X10^3/uL (0.0-0.1) 01/07/20 05:06 Absolute Nucleated RBC 0.0 /100WBC 01/07/20 05:06 ESR 111 MM/HOUR (0-20) H 01/07/20 05:06 Sample Site Rr 01/06/20 05:39 ABG pH 7.500 (7.35-7.45) H 01/06/20 05:39 ABG pCO2 37.0 mmHg (35.0-45.0) 01/06/20 05:39 ABG pO2 82.0 mmHg (80.0-100.0) 01/06/20 05:39 ABG HCO3 28.9 mmol/L (22-26) H 01/06/20 05:39 ABG O2 Saturation 97.0 % (90-100) 01/06/20 05:39 ABG Base Excess 5.5 mmol/L (-2.0-2.0) H 01/06/20 05:39 Delroy Test Pos 01/06/20 05:39 A-a Gradient 71.0 mmHg 01/06/20 05:39 FiO2 28.0 01/06/20 05:39 Blood Gas Comments Kimberly well ae 01/06/20 05:39 Sodium 136 mmol/L (136-145) 01/07/20 05:06 Corrected Sodium 136 mmol/L (136-145) 01/07/20 05:06 Potassium 3.6 mmol/L (3.5-5.1) 01/07/20 05:06 Chloride 101 mmol/L (98-107) 01/07/20 05:06 Carbon Dioxide 29.0 mmol/L (21-32) 01/07/20 05:06 BUN 8 mg/dL (7-18) 01/07/20 05:06 Creatinine 0.78 mg/dL (0.55-1.02) 01/07/20 05:06 Est GFR (MDRD) Af Amer > 60 (>60) 01/07/20 05:06 Est GFR (MDRD) Non-Af > 60 (>60) 01/07/20 05:06 Glucose 115 mg/dL (65-99) H 01/07/20 05:06 Lactic Acid 0.8 mmol/L (0.4-2.0) 01/04/20 17:55 Calcium 8.4 mg/dL (8.5-10.1) L 01/07/20 05:06 Corrected Calcium 9.5 mg/dL (8.5-10.1) 01/07/20 05:06 Magnesium 1.9 mg/dL (1.7-2.9) 01/05/20 04:50 Ferritin 782 ng/mL (8-252) H 01/06/20 05:20 Total Bilirubin 0.60 mg/dL (0.2-1.0) 01/07/20 05:06 AST 30 Units/L (15-37) 01/07/20 05:06 ALT 28 Units/L (12-78) 01/07/20 05:06 Alkaline Phosphatase 55 Units/L (46-116) 01/07/20 05:06 Lactate Dehydrogenase 361 Units/L (81-234) H 01/06/20 05:20 Creatine Kinase 131 Units/L (26-192) 01/06/20 01:54 CK-MB (CK-2) 1.0 ng/mL (0-4.0) 01/06/20 01:54 CK/CKMB % Calc 0.8 % (<4) 01/06/20 01:54 Troponin I < 0.02 ng/mL (0-1.5) 01/06/20 01:54 C-Reactive Protein 147.10 mg/L (0-3.0) H 01/07/20 05:06 Total Protein 7.4 g/dL (6.4-8.2) 01/07/20 05:06 Albumin 2.6 g/dL (3.4-5.0) L 01/07/20 05:06 Globulin 4.8 g/dL (2.5-4.5) H 01/07/20 05:06 Albumin/Globulin Ratio 0.5 Ratio (1.1-2.1) L 01/07/20 05:06 Specimen Type Catherized urine 01/07/20 02:15 Urine Color Yellow (YELLOW) 01/07/20 02:15 Urine Appearance Clear (CLEAR) 01/07/20 02:15 Urine pH 6.5 (5.0 - 8.0) 01/07/20 02:15 Ur Specific [place] 1.005 (1.000-1.030) 01/07/20 02:15 Urine Protein 1+ (NEGATIVE) 01/07/20 02:15 Urine Glucose (UA) Negative (NEGATIVE) 01/07/20 02:15 Urine Ketones 1+ (NEGATIVE) 01/07/20 02:15 Urine Occult Blood 2+ (NEGATIVE) 01/07/20 02:15 Urine Nitrite Negative (NEGATIVE) 01/07/20 02:15 Urine Bilirubin Negative (NEGATIVE) 01/07/20 02:15 Urine Urobilinogen Normal (NORMAL) 01/07/20 02:15 Ur Leukocyte Esterase Negative (NEGATIVE) 01/07/20 02:15 Urine RBC 0-2 /HPF (0-3) 01/07/20 02:15 Urine WBC None seen /HPF (0-5) 01/07/20 02:15 Ur Squamous Epith Cells Negative /HPF (NEGATIVE) 01/07/20 02:15 Amorphous Sediment 1+ /HPF (NEGATIVE) 01/05/20 12:55 Urine Bacteria Negative /HPF (NEGATIVE) 01/07/20 02:15 Ur Culture Indicated? No/not indicated 01/07/20 02:15 RSV Nasal Swab Negative (NEGATIVE) 01/05/20 09:31 Rheumatoid Factor Positive (NEGATIVE) A 01/05/20 14:48 - Plan (1) LLL pneumonia Status: Acute Qualifiers: Pneumonia type: due to unspecified organism Qualified Code(s): J18.9 - Pneumonia, unspecified organism Plan: NS @ 75 ML/HR, FORTAZ 1G IV Q8H, LEVAQUIN IV DAILY, RESPIRATORY TX, TUSSIONEX, AND SUPPLEMENTAL OXYGEN. (2) Pleural effusion, left Status: Acute
[2020-01-08 05:30] LABS: BASOPHILS # (AUTO) 0.1 X10^3/uL (0.0-0.1); BASOPHILS % (AUTO) 0.5 % (0.2-1.0); EOSINOPHILS # (AUTO) 0.3 x10^3/uL (0.0-0.2); EOSINOPHILS % (AUTO) 2.4 % (0.9-2.9); HEMATOCRIT 32.5 % (36.0-47.0); LYMPHOCYTES # (AUTO) 1.3 X10^3/uL (1.3-2.9); LYMPHOCYTES % (AUTO) 12.7 % (21.0-51.0); MEAN CORPUSCULAR HEMOGLOBIN 32.4 pg (27.0-34.0); MEAN CORPUSCULAR HGB CONC 33.9 g/dL (33.0-35.0); MEAN CORPUSCULAR VOLUME 95.4 fL (80.0-100.0); MEAN PLATELET VOLUME 9.8 fL (7.4-11.0); MONOCYTES # (AUTO) 1.2 x10^3/uL (0.3-0.8); MONOCYTES % (AUTO) 11.2 % (0.0-13.0); NEUTROPHILS # (AUTO) 7.5 x10^3/uL (2.2-4.8); NEUTROPHILS % (AUTO) 73.2 % (42.0-75.0); PLATELET COUNT 249 X10^3/uL (150.0-450.0); RED BLOOD COUNT 3.41 X10^6/uL (3.5-5.4); RED CELL DISTRIBUTION WIDTH 12.9 % (11.6-16.5); WHITE BLOOD COUNT 10.3 X10^3/uL (3.6-10.0)
[2020-01-08] MEDS: FORTAZ or TAZICEF VIAL INJ 1 G in NS 100 ML IV + SPIKE MINIBAG* 100 ML IV SCH ×2 (05:30→13:39)
[2020-01-08] MEDS: PLAQUENIL PO SCH ×2 (05:36→13:42)
[2020-01-08 05:39] LABS: ALANINE AMINOTRANSFERASE 53 Units/L (12-78); ALBUMIN 2.9 g/dL (3.4-5.0); ALKALINE PHOSPHATASE 60 Units/L (46-116); ASPARTATE AMINO TRANSFERASE 72 Units/L (15-37); BLOOD UREA NITROGEN 8 mg/dL (7-18); CALCIUM 8.8 mg/dL (8.5-10.1); CHLORIDE 103 mmol/L (98-107); COR CA(FOR HYPOALB) 9.7 mg/dL (8.5-10.1); CREATININE 0.76 mg/dL (0.55-1.02); SODIUM 137 mmol/L (136-145); TOTAL PROTEIN 7.8 g/dL (6.4-8.2); eGFR NON BLACK RACES > 60 (>60)
[2020-01-08 06:11] LABS: ERYTHROCYTE SEDIMENTATION RATE 72 MM/HOUR (0-20)
[2020-01-08] MEDS ORDERED: NS 100 ML IV 100 ML IV ONE (06:26)
--- NOTE | 2020-01-08 06:53 | RAD ---
HISTORYSOB, LLQ PNEUMONIA, LEFT PLEURAL EFFUSIONSTUDYPortable AP chestCOMPARISONMarch 2019FINDINGSThere is slight enlargement of the large left pleural effusion the cardiac sat silhouette remains enlarged shown by prior CT to be secondary to a pericardial effusion. The left upper lobe and the right lung remain grossly clear.IMPRESSIONIncreasing size of moderately large left pleural effusion. Unchanged enlarged cardiac silhouette secondary to pericardial effusion.Electronically signed by: WILDA BERMAN (Jan 08, 2020 06:52:11)
--- NOTE | 2020-01-08 07:36 | CT ---
HISTORYpleural effusionSTUDYCT chest after intravenous contrast infusion. Sagittal and coronal reformations were provided. Dose reduction techniques were utilized.COMPARISONMar2019FINDINGSThere is a moderately large pericardial effusion and a moderate left pleural effusion not significantly changed. There is left basilar consolidation with air bronchograms. There are prominent mediastinal lymph nodes as before. There is no significant left hilar adenopathy. There is a small right pleural effusion which is increased in size with right basilar consolidation with air bronchograms. This is also increased. The upper lobes are grossly clear.IMPRESSION1. No significant change of large pericardial effusion and moderate left pleural effusion2. Slight increase in size of a small right pleural effusion3. Bibasilar subsegmental atelectasis or consolidation and unchanged mediastinal adenopathyElectronically signed by: WILDA BERMAN (Jan 08, 2020 07:34:23)
[2020-01-08] MEDS: LOVENOX INJ 40 MG SYR SC SCH (09:42)
[2020-01-08] MEDS: ALBUMIN HUMAN 25%- 100 ML 100 ML IV SCH (09:44)
[2020-01-08] MEDS: VSL#3 PO SCH (09:45)
[2020-01-08] MEDS: TOPROL XL PO SCH (09:45)
[2020-01-08] MEDS: ZITHROMAX INJ 500 MG VIAL 500 MG in NS 250 ML IV 250 ML IV SCH (09:45)
[2020-01-08] MEDS: ROBITUSSIN DM PO SCH ×2 (09:46→13:39)
[2020-01-08] MEDS ORDERED: NS 1/2 1000 ML IV 1,000 ML IV ONE (12:37)
[2020-01-08] MEDS: NS 1/2 1000 ML IV 1,000 ML IV SCH (13:39)
[2020-01-08 17:31] VITALS: BP 196/81
[2020-01-10 11:13] LABS: ANTI-NUCLEAR ANTIBODY TEST Detected (None Detected)
[2020-01-16 11:21] LABS: ANA PATTERN SPECKLED
--- NOTE | 2020-02-02 10:54 | PCM.PROG ---
Progress Note - Progress Note for Day of Date of Exam: 01/07/20 - Subjective Subjective: IS BEING TREATED FOR LLL PNEUMONIA AND A LEFT SIDED PLEURAL EFFUSION. TODAY, SHE IS ALERT AND ORIENTED, SITTING UP IN BED ON MORNING ROUNDS. SHE IS NOTED WITH SHORTNESS OF BREATH AND COUGH TODAY. SHE REPORTS THAT SHORTNESS OF BREATH HAS INCREASED SINCE YESTERDAY. STAFF REPORTS THAT SHE HAS BEEN TACHYCARDIC THROUGHOUT THE MORNING. ON EXAMINATION, HEART IS REGULAR IN RATE AND RHYTHM. BILATERAL LUNGS ARE NOTED WITH SCATTERED WHEEZING THROUGHOUT. ABDOMEN IS ROUND, SOFT, AND NON-TENDER WITH NORMAL BOWEL SOUNDS NOTED IN ALL QUADRANTS. HER VITALS THIS MORNING ARE: 100.2-96-27-95%-173/74. LABS WERE OBTAINED. ABNORMAL LAB VALUES INCLUDE THE FOLLOWING: WBC 10.7, RBC 3.19, HGB 10.3, HCT 30.3, GLUCOSE 115, CALCIUM 8.4, CRP 147.10, ALBUMIN 2.6, GLOBULIN 4.8. RSV NEGATIVE. BLOOD CULTURES ARE PENDING. A CHEST XRAY WAS OBTAINED TODAY AND REVEALED: Enlarged cardiac silhouette and retrocardiac opacity on the left are unchanged and likely correspond to a large pericardial effusion and left basilar pleural effusion with associated compressive atelectasis noted on the comparison chest CT performed 2 days earlier. A CHEST CT WAS OBTAINED ON 01/05/20. IT REVEALED: 1. Large pericardial effusion. 2. Large left-sided pleural effusion. Small right-sided pleural effusion. 3. Compressive atelectasis versus consolidation in the left lower lobe. 4. Patchy infiltrate along the periphery of the right lower lobe. 5. Mediastinal lymphadenopathy. Although there is a post 1.5 cm lymph node in the AP window. Most of the lymph nodes in the mediastinum appear reactive in nature. Clinical correlation for infectious or inflammatory process is recommended. SHE WAS SWABBED FOR COVID-19. WE WILL FRANDY NUE WITH IV ANTIBIOTICS, RESPIRATORY TX, THE POTASSIUM AND MAGNESIUM PROTOCOLS, IV FLUIDS, AND CURRENT PLAN OF CARE. WE WILL REPEAT CHEST CT TOMORROW MORNING. OTHERWISE, WE WILL FOLLOW UP WITH AM LABS AND CHEST XRAY AND CONTINUE TO MONITOR. - Past Medical Family Social History Past Med/Fam/Surg Hx: No changes since H&P Allergies: Allergies No Known Drug Allergies Allergy (Verified 01/04/20 17:19) - Review of Systems ROS: No change since H&P - Vital Signs and I&O's Vital Signs: Temperature 98.3 F Pulse Rate [Apical] 81 Pulse Rate 81 Respiratory Rate 24 Blood Pressure [Right Arm] 159/72 Blood Pressure 196/81 O2 Sat by Pulse Oximetry 94 - Physical Exam Oriented: Normal Eyes: Normal Ear: Normal Nose: Normal Throat: Normal Respiratory: Generalized, Wheezes Cardiovascular: Normal. negative: S3, S4, Murmur : Normal Auscultation: Bowel Sounds: Normal Palpation: Normal Tenderness: Normal Skin: Normal Musculoskeletal: Normal Psychiatric: Normal Mood Description: Calm Affect: Normal Speech Pattern: Clear, Appropriate - Laboratory and Diagnostics Result Diagrams: 01/08/20 04:32 01/08/20 04:32 Labs: 01/04/20 18:01 Blood Blood Culture - Final 01/04/20 17:55 Blood Blood Culture - Final Laboratory WBC 10.3 X10^3/uL (3.6-10.0) H 01/08/20 04:32 RBC 3.41 X10^6/uL (3.5-5.4) L 01/08/20 04:32 Hgb 11.0 g/dL (12.0-16.0) L 01/08/20 04:32 Hct 32.5 % (36.0-47.0) L 01/08/20 04:32 MCV 95.4 fL (80.0-100.0) 01/08/20 04:32 MCH 32.4 pg (27.0-34.0) 01/08/20 04:32 MCHC 33.9 g/dL (33.0-35.0) 01/08/20 04:32 RDW 12.9 % (11.6-16.5) 01/08/20 04:32 Plt Count 249 X10^3/uL (150.0-450.0) 01/08/20 04:32 MPV 9.8 fL (7.4-11.0) 01/08/20 04:32 Neut % (Auto) 73.2 % (42.0-75.0) 01/08/20 04:32 Lymph % (Auto) 12.7 % (21.0-51.0) L 01/08/20 04:32 [place] % (Auto) 11.2 % (0.0-13.0) 01/08/20 04:32 Eos % (Auto) 2.4 % (0.9-2.9) 01/08/20 04:32 Baso % (Auto) 0.5 % (0.2-1.0) 01/08/20 04:32 Neut # (Auto) 7.5 x10^3/uL (2.2-4.8) H 01/08/20 04:32 Lymph # (Auto) 1.3 X10^3/uL (1.3-2.9) 01/08/20 04:32 [place] # (Auto) 1.2 x10^3/uL (0.3-0.8) H 01/08/20 04:32 Eos # (Auto) 0.3 x10^3/uL (0.0-0.2) H 01/08/20 04:32 Baso # (Auto) 0.1 X10^3/uL (0.0-0.1) 01/08/20 04:32 Absolute Nucleated RBC 0.0 /100WBC 01/08/20 04:32 ESR 72 MM/HOUR (0-20) H 01/08/20 04:32 Sample Site Rr 01/06/20 05:39 ABG pH 7.500 (7.35-7.45) H 01/06/20 05:39 ABG pCO2 37.0 mmHg (35.0-45.0) 01/06/20 05:39 ABG pO2 82.0 mmHg (80.0-100.0) 01/06/20 05:39 ABG HCO3 28.9 mmol/L (22-26) H 01/06/20 05:39 ABG O2 Saturation 97.0 % (90-100) 01/06/20 05:39 ABG Base Excess 5.5 mmol/L (-2.0-2.0) H 01/06/20 05:39 Delroy Test Pos 01/06/20 05:39 A-a Gradient 71.0 mmHg 01/06/20 05:39 FiO2 28.0 01/06/20 05:39 Blood Gas Comments Kimberly well ae 01/06/20 05:39 Sodium 137 mmol/L (136-145) 01/08/20 04:32 Corrected Sodium TNP 01/08/20 04:32 Potassium 4.0 mmol/L (3.5-5.1) 01/08/20 04:32 Chloride 103 mmol/L (98-107) 01/08/20 04:32 Carbon Dioxide 26.0 mmol/L (21-32) 01/08/20 04:32 BUN 8 mg/dL (7-18) 01/08/20 04:32 Creatinine 0.76 mg/dL (0.55-1.02) 01/08/20 04:32 Est GFR (MDRD) Af Amer > 60 (>60) 01/08/20 04:32 Est GFR (MDRD) Non-Af > 60 (>60) 01/08/20 04:32 Glucose 106 mg/dL (65-99) H 01/08/20 04:32 Lactic Acid 0.8 mmol/L (0.4-2.0) 01/04/20 17:55 Calcium 8.8 mg/dL (8.5-10.1) 01/08/20 04:32 Corrected Calcium 9.7 mg/dL (8.5-10.1) 01/08/20 04:32 Magnesium 1.9 mg/dL (1.7-2.9) 01/05/20 04:50 Ferritin 782 ng/mL (8-252) H 01/06/20 05:20 Total Bilirubin 0.60 mg/dL (0.2-1.0) 01/08/20 04:32 AST 72 Units/L (15-37) H 01/08/20 04:32 ALT 53 Units/L (12-78) 01/08/20 04:32 Alkaline Phosphatase 60 Units/L (46-116) 01/08/20 04:32 Lactate Dehydrogenase 361 Units/L (81-234) H 01/06/20 05:20 Creatine Kinase 131 Units/L (26-192) 01/06/20 01:54 CK-MB (CK-2) 1.0 ng/mL (0-4.0) 01/06/20 01:54 CK/CKMB % Calc 0.8 % (<4) 01/06/20 01:54 Troponin I < 0.02 ng/mL (0-1.5) 01/06/20 01:54 C-Reactive Protein 129.30 mg/L (0-3.0) H 01/08/20 04:32 Total Protein 7.8 g/dL (6.4-8.2) 01/08/20 04:32 Albumin 2.9 g/dL (3.4-5.0) L 01/08/20 04:32 Globulin 4.9 g/dL (2.5-4.5) H 01/08/20 04:32 Albumin/Globulin Ratio 0.6 Ratio (1.1-2.1) L 01/08/20 04:32 Specimen Type Catherized urine 01/07/20 02:15 Urine Color Yellow (YELLOW) 01/07/20 02:15 Urine Appearance Clear (CLEAR) 01/07/20 02:15 Urine pH 6.5 (5.0 - 8.0) 01/07/20 02:15 Ur Specific [place] 1.005 (1.000-1.030) 01/07/20 02:15 Urine Protein 1+ (NEGATIVE) 01/07/20 02:15 Urine Glucose (UA) Negative (NEGATIVE) 01/07/20 02:15 Urine Ketones 1+ (NEGATIVE) 01/07/20 02:15 Urine Occult Blood 2+ (NEGATIVE) 01/07/20 02:15 Urine Nitrite Negative (NEGATIVE) 01/07/20 02:15 Urine Bilirubin Negative (NEGATIVE) 01/07/20 02:15 Urine Urobilinogen Normal (NORMAL) 01/07/20 02:15 Ur Leukocyte Esterase Negative (NEGATIVE) 01/07/20 02:15 Urine RBC 0-2 /HPF (0-3) 01/07/20 02:15 Urine WBC None seen /HPF (0-5) 01/07/20 02:15 Ur Squamous Epith Cells Negative /HPF (NEGATIVE) 01/07/20 02:15 Amorphous Sediment 1+ /HPF (NEGATIVE) 01/05/20 12:55 Urine Bacteria Negative /HPF (NEGATIVE) 01/07/20 02:15 Ur Culture Indicated? No/not indicated 01/07/20 02:15 RSV Nasal Swab Negative (NEGATIVE) 01/05/20 09:31 Rheumatoid Factor Positive (NEGATIVE) A 01/05/20 14:48 JAILYN Screen Detected (None Detected) H 01/05/20 14:48 JAILYN Titer [id number] 01/05/20 14:48 JAILYN Pattern Speckled 01/05/20 14:48 Miscellaneous Test Covid 19 01/06/20 14:45 - Plan (1) LLL pneumonia Status: Acute Qualifiers: Pneumonia type: due to unspecified organism Qualified Code(s): J18.9 - Pneumonia, unspecified organism Plan: NS @ 75 ML/HR, FORTAZ 1G IV Q8H, LEVAQUIN IV DAILY, RESPIRATORY TX, TUSSIONEX, AND SUPPLEMENTAL OXYGEN. (2) Pleural effusion, left Status: Acute
== END 2020-01-08 16:20 | disposition home or self-care (01) | DRG 194 ==
LOC: ER 17:12 → MED/SURG 20:23 → ICU 01-06 11:40
PROVIDERS: ADMIT Internal Medicine; ATTEND Internal Medicine
CPT/HCPCS: 36415; 36600; 71010; 71020; 71045; 71046; 71260; 72100; 72220; 80053; 81001; 82550; 82553; 82728; 82803; 83605; 83615; 83735; 84484; 85025; 85652; 86038; 86039; 86140; 86308; 86430; 87040; 87420; 93005; 94640; 94760; 96365; 96374; 99284; A4222; J0456; J0713; J1160; J1650; J1940; J1956; J3475; J3490; J7040; J7050; J7620; P9047